=== PATIENT | female | born 2005 | race Caucasian/White ===

== ENCOUNTER 2024-09-11 08:50 | Outpatient (AMB) | payer BC, SELFPAY ==
--- NOTE | 2024-09-11 09:05 | ACNOTE_ITS ---
Vital Signs 09/11/24 09:06 Height 1.65 m Height Method Stated Weight 63.219 kg Weight Measurement Method Standing Scale BMI 23.1 BP 110/70 Blood Pressure Source Automatic Cuff Blood Pressure Location Right Upper Arm Position Sitting Respiration 18 Pulse 73 Pulse Source Monitor Temp 97.8 F Temp Source Temporal Artery Scan Pulse Oximetry (%) 99 Oxygen Delivery Method Room Air Allergies/Meds Allergies & Medications Allergies No Known Allergies Allergy (Verified 09/11/24 09:06) Medication Reconciliation No Known Home Medications 09/11/24 [History Confirmed 09/11/24] triamcinolone acetonide 0.1 % topical cream 1 applic topical BID 14 days #30 grams 09/11/24 [Rx] MA Intake Visit Data Collection New Patient or Established: Established Patient (seen at [facility] within 3 years) Seen by Clinical Staff ONLY (RN/MA): No Pain Present Currently: No Pain scale:: 0 Pain Scale Used: Grady-Dean/Numerical Software Engineer Sales Required: No PCP or OBGYN visit in last 3 months: No Hx Now: No Do You Feel Safe at Home: Yes Authorities Contacted: N/A Smoking Status Smoking Status: Never smoker Immunization / Flu Flu Vaccine in the Last 12 Months: No Flu Vaccine Exclusion Criteria: No Exclusion Criteria Past Medical History Social History SMOKING STATUS: Smoking status: Never smoker Patient Portal Questionaires Social History Tobacco History Smoking Status: Never smoker Domestic Abuse History Do You Feel Safe at Home: Yes Review of Systems Report any current symptoms Only answer those that you have currently: Past Medical History Past Medical History Have you ever been diagnosed with any of the following: Assessment & Plan Diagnosis / Problem List Orders: Orders Vaccine TDAP (Diphtheria/Tetanus/Acell Pertussis)Non-[facility] Today Office Procedures [facility] Level of Care Nursing/Assessment Patient Status: Established Patient Nursing Assessment/Reassessment: Medication Reconciliation, Update PMH in EMR and Vital Signs Coordination of Care: Complex Care and Chronic Disease 1-5, Consent,records obtained, informed consent, Education Simp Pt/Fam and Staff clarify orders Established Patient Charge Established Patient Point Assignment: 85 Established Patient Point Charge: Level 3 (80-115) Injection/Vaccine Admin/Surg Procedure Admin 1st Vaccine: Yes (TDAP) Medication Given Medication Given Medication Given: Yes Documented Dose Given: 0.5 Route: IM Immunizations diphth,pertus(acell),tetanus 2.5 Lf unit-8 mcg-5 Lf/0.5mL IM syringe Performing Provider: Zaki Payan MD Performing Location: [facility] Administered by: Teresa Barrientos MA on 09/11/24 16:30 Dose Route Admin Location Dispensed Lot Number Expiration Date NDC Risk Control Product Liability Director 0.5 mL IM Left Deltoid 0.5 mL [id number] 10/24/26 80044-095-99 [employer] VIS Given Date VIS Provided VIS Publication Date 09/11/24 Single Vaccine 24 Eligibility Eligibility Date Funding Source [facility] Non-[facility]
[2024-09-11 09:06] VITALS: BP 110/70; PULSE 73; RESP 18; TEMP 36.6; O2SAT 99; BMI 23.1
== END 2024-09-11 09:28 | disposition home or self-care (01) ==
LOC: HODAHC 08:50
PROVIDERS: PCP Pediatrics; Referring Provider Pediatrics; Supervising Provider Internal Medicine
DX: Z23 Encounter for immunization (principal)
CPT/HCPCS: 90471; 90715; 99213; G0463

== ENCOUNTER 2024-11-11 08:31 | Outpatient (AMB) | payer BC, SELFPAY ==
[2024-11-11 08:45] VITALS: BP 111/74; PULSE 71; RESP 14; TEMP 36.6; O2SAT 98; BMI 23.3
--- NOTE | 2024-11-11 08:45 | AMB.GYNCLNOT ---
Vital Signs 11/11/24 08:45 Height 1.65 m Height Method Stated Weight 63.673 kg Weight Measurement Method Standing Scale BMI 23.3 BP 111/74 Blood Pressure Source Automatic Cuff Blood Pressure Location Left Upper Arm Position Sitting Respiration 14 Pulse 71 Pulse Source Monitor Temp 97.8 F Temp Source Oral Pulse Oximetry (%) 98 Oxygen Delivery Method Room Air Allergies/Home Meds Allergies & Medications Allergies No Known Allergies Allergy (Verified 11/11/24 08:46) Medication Reconciliation adapalene 0.3 % topical gel 1 applic topical QPM 30 days #45 grams 11/11/24 [Rx] clindamycin phosphate 1 % topical solution 1 applic topical QDAY 30 days #60 mL 11/11/24 [Rx] spironolactone 25 mg tablet 25 mg PO QDAY 90 days #90 tabs 11/11/24 [Rx] Intake Visit Data Collection New Patient or Established: Established Patient (seen at [facility] within 3 years) Reason for Visit:: REQUESTING CONTROL Seen by Clinical Staff ONLY (RN/MA): No Remanufacturing Technician Required: No Do You Feel Safe at Home: Yes Authorities Contacted: N/A PCP or OBGYN visit in last 3 months: Yes Hx Now: No Are you currently on any form of Control: Yes Last menstrual period: 09/16/24 Pain Present Currently: No Pain Scale Used: Grady-Dean/Numerical Pain scale:: 0 Smoking Status Smoking Status: Never smoker 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 1. Little interest or pleasure in doing things: not at all 2. Feeling down, depressed, or hopeless: not at all Total score: 0 PHQ-9 3. Trouble falling or staying asleep, or sleeping too much: Not at all 4. Feeling tired or having little energy: Not at all 5. Poor appetite or overeating: Not at all 6. Feeling bad about yourself - or that you are a failure or have let yourself or your family down: Not at all 7. Trouble concentrating on things, such as reading the newspaper or watching television: Not at all 8. Moving or speaking so slowly that other people could have noticed? - Or the opposite - being so fidgety or restless that you have been moving around a lot more than usual: not at all 9. Thoughts that you would be better off or of hurting yourself in some way: Not at all Total score: 0 Source: Developed by Drs. Maury Martinez, Pricila Edwards, Leif Grewal and colleagues, with an educational gordy from [employer]. Depression screen completed yes Social History Living Situation History Marital Status: Single Lives With: Alone Housing: Apartment Tobacco History Smoking Status: Never smoker Second Hand Smoke Exposure: No Alcohol History Alcohol Intake: Current Alcohol Intake Frequency: holidays/special occasions only Domestic Abuse History Do You Feel Safe at Home: Yes History of Present Illness HPI Narrative Patient is a young woman presenting with concerns about acne. She reports that her acne has not improved despite restarting control (low dose OC Pill) approximately 4 months ago. The patient notes that her acne flares with stress and can be painful at times. The patient's acne initially improved when she started low dose OC Pill at age 15. However, since restarting the medication 4 months ago, she has not experienced the same level of improvement. She mentions that stress exacerbates her acne, and she is currently experiencing increased stress due to starting graduate school in a week. She describes that the acne actually hurts sometimes, indicating some level of discomfort or pain associated with the condition. She reports no use of topical treatments such as adapalene or clindamycin. She states, I don't use anything harsh, suggesting a preference for gentler skincare options. The patient expresses satisfaction with low dose OC Pill, noting that she did not experience any weight or mood changes while using it. Regarding lifestyle changes, she is about to begin graduate school at [employer] in Education, having recently graduated from [employer]. This transition may be contributing to her current stress levels and subsequent acne flare-ups. Medical History: - Acne, managed with control since age 15 Social History: - Education: Recently graduated from [employer], starting graduate school at [employer] in Education - Occupation: student counsellor - Stress: Reports increased stress due to starting school soon Exam General General Appearance: alert, in no apparent distress and healthy appearing Head Head exam: atraumatic Neck Neck exam: Present normal inspection and trachea midline Chest Chest inspection: Present normal inspection and symmetric chest wall rise External exam: Present normal external exam; Absent tenderness Neuro Neurological exam: Present oriented X3 Psych Psychiatric exam: Present normal affect and normal mood Office Procedures OB Clinic LOC & Office Proc's Nursing/Assessment Patient Status: Established Patient OB Clinic Nursing Assessment: Medication Reconciliation, Update PMH in EMR and Vital Signs OB Clinic Coordination of Care: Complex Care and Chronic Disease 1-5, Consent,records obtained, informed consent, Education Simp Pt/Fam, Lab and Imaging orders and Staff clarify orders Established Patient Charge Established Patient Point Assignment: 100 Established Patient Point Charge: EP Level 3 (80-115) Assessment & Plan Diagnosis / Problem List (1) Acne cystica: Status: Acute Plan Acne vulgaris Assessment: Patient reports a history of acne that previously improved with oral contraceptives (low dose OC Pill) at age 15. She restarted low dose OC Pill approximately 4 months ago but has not experienced improvement. The acne is exacerbated by stress, particularly with the patient starting graduate school soon. She reports that the acne can be painful at times. The patient has not been using any topical treatments for her acne. Plan: - Continue low dose OC Pill for hormonal management of acne - Start spironolactone for hormonal management of acne - Start clindamycin face wash in the morning for topical treatment - Start adapalene gel at night for topical treatment - Prescriptions sent to [facility] in [place] for initial fill and [facility] on [facility] in [place] for refills - Follow up in 1 month via telehealth to assess treatment efficacy - Patient advised to expect benefits within one week of starting treatment
== END 2024-11-11 09:01 | disposition home or self-care (01) ==
LOC: HODSOBC 08:31
PROVIDERS: Supervising Provider Obstetrics & Gynecology; Visit Provider Obstetrics & Gynecology
DX: L70.0 Acne vulgaris (principal)
CPT/HCPCS: 99213; G0463